=== PATIENT | female | born 1945 | race American Indian/Alaskan Native ===

== ENCOUNTER 2017-11-23 11:13 | Outpatient (CLI) | payer MEDICARE ==
--- NOTE | 2017-11-24 15:07 | Mammography Report ---
BONE DEXA:11/23/17 11:13:00 CLINICAL: Postmenopausal. COMPARISON: 02/25/15 TECHNIQUE: Two site bone DEXA performed on an Hologic scanner. FINDINGS: The average BMD of the lumbar spine L1-L4 is 1.070g/cm squared with a T-score of +0.2 and a Z-score of +2.5. This compares to 1.070g/cm squared on the last exam and represents a 0.1% change from the previous baseline. The average BMD of the left hip is 1.060g/cm squared with a T-score of +1.0 and a Z-score of +2.6. This compares to 1.032g/cm squared on the last exam and represents a +2.7% change from the previous baseline. IMPRESSION: 1. WHO classification: Normal with average fracture risk based on of ulnar spine and left hip measurements. 2. A slight improvement in left hip BMD compared to the prior exam and no significant change in spine BMD compared to the prior exam. RECOMMENDATION: Clinical correlation and routine screening. DEFINITIONS: BMD = Bone Mineral Density T-score = BMD related to mean peak bone mass of young adult (mean expressed in Standard Deviation) Z-score = Age matched BMD expressed in SD World Health Organization (WHO) Diagnostic Criteria Normal T-score > -1 SD Osteopenia T-score between -1 and -2.4 SD Osteoporosis T-score -2.5 SD or below NOTE: BMD is not the only risk factor for fracture; also consider factors such as the patient's age, risk of falling, previous osteoporotic fracture, family history of osteoporotic fractures, current smoker, and low body weight. Z-scores are not calculated if >80 years of age.
== END 2017-11-23 11:14 | disposition home or self-care (01) ==
LOC: SPVWC 11:13
PROVIDERS: ATTEND Family Medicine
DX: M81.0 Age-related osteoporosis without current pathological fracture (principal); I10 Essential (primary) hypertension; E78.00 Pure hypercholesterolemia, unspecified; Z78.0 Asymptomatic menopausal state; Z87.891 Personal history of nicotine dependence
CPT/HCPCS: 77080

== ENCOUNTER 2021-05-03 09:37 | Outpatient (CLI) | payer MEDICARE ==
--- NOTE | 2021-05-03 10:32 | Mammography Report ---
DEXA BONE DENSITY SCAN INDICATION / CLINICAL INFORMATION: ASYMPTOMATIC AGE-RELATED POSTMENOPAUSAL STATE. 76 years Female COMPARISON: 11/23/2017. LUMBAR SPINE, L1-L4: - Bone mineral density (BMD) = 1.025 g/cm2. - T-score = -0.2 - Z-score = 2.3 Change (%) since most recent prior (if available): Decrease of 4.2% LEFT HIP, NECK : - Bone mineral density (BMD) = 0.708 g/cm2. - T-score = -1.3 - Z-score = 0.9 Change (%) since most recent prior (if available): Decrease of 0.8% IMPRESSION: 1. WHO Classification: Osteopenia. Fracture Risk: Increased. BMD Reporting Guidelines (ISCD, 2015) BMD Reporting in Postmenopausal Women and in Men Age 50 and Older * T-scores are preferred. * The WHO densitometric classification is applicable. BMD Reporting in Females Prior to Menopause and in Males Younger Than Age 50 * Z-scores, not T-scores, are preferred. This is particularly important in children. * A Z-score of -2.0 or lower is defined as below the expected range for age, and a Z-score above -2. 0 is within the expected range for age. * Osteoporosis cannot be diagnosed in men under age 50 on the basis of BMD alone. * The WHO diagnostic criteria may be applied to women in the menopausal transition. http://www.iscd.org/official-positions/6445-gdlo-xczdgsnd-positions-adult/ Signer Name: Alex Cheek MD Signed: 05/03/2021 10:27 AM Workstation Name: [id number]
== END 2021-05-03 09:38 | disposition home or self-care (01) ==
LOC: SPVWC 09:37
PROVIDERS: ATTEND Family Medicine
DX: Z13.820 Encounter for screening for osteoporosis (principal); Z78.0 Asymptomatic menopausal state
CPT/HCPCS: 77080